=== PATIENT | male | born 1975 | race Caucasian/White ===

== ENCOUNTER 2021-01-04 14:12 | Emergency (ER) | payer MEDICARE, MEDICAID ==
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
[2021-01-04 15:17] LABS: ACETAMINOPHEN <2.0 ug/mL; BLOOD UREA NITROGEN,BUN 8 mg/dL (7.0-18.0); CARBON DIOXIDE,CO2 26.6 mmol/L (21.0-32.0); CHLORIDE,CL 105 mmol/L (98-107); GLUCOSE RANDOM 98 mg/dL (74-106); POTASSIUM,K 3.8 mmol/L (3.5-5.1); SODIUM,NA 142 mmol/L (136-148)
== END 2021-01-04 16:01 | disposition home or self-care (01) ==
LOC: MW.ED 14:12
DX: S00.81XA Abrasion of other part of head, initial encounter (principal); Z72.0 Tobacco use; Z88.8 Allergy status to other drugs, medicaments and biological substances; W22.8XXA Striking against or struck by other objects, initial encounter
CPT/HCPCS: 36415; 80053; 80143; 80179; 80305-QW; 80307; 82550; 85025; 99283; 99284

== ENCOUNTER 2022-07-01 18:36 | Emergency (ER) | payer MEDICAID, MEDICARE ==
[2022-07-01] MEDS ORDERED: Sodium Chloride 0.9% 1,000 ML IV ONE (19:55)
[2022-07-01 21:03] LABS: BLOOD UREA NITROGEN,BUN 5 mg/dL (7.0-18.0); CARBON DIOXIDE,CO2 26.2 mmol/L (21.0-32.0); CHLORIDE,CL 103 mmol/L (98-107); GLUCOSE RANDOM 85 mg/dL (74-106); SODIUM,NA 141 mmol/L (136-148)
[2022-07-01 21:19] LABS: ESTIMATED GFR 84 mL/min (>60)
== END 2022-07-01 22:24 | disposition home or self-care (01) ==
LOC: MW.ED 18:36
DX: R51.9 Headache, unspecified (principal); Z79.899 Other long term (current) drug therapy; Z88.8 Allergy status to other drugs, medicaments and biological substances; W22.8XXA Striking against or struck by other objects, initial encounter
CPT/HCPCS: 36415; 80053; 82550; 84443; 96360; 99284; J7030